=== PATIENT | female | born 1940 | race Caucasian/White ===

== ENCOUNTER → 2017-05-15 | Outpatient (CLI) | payer MEDICARE, OTHER ==
[~2017-05-15] MED LIST: ALLERGY RELIEF PO; ASPI-621 PO; CALCIUM PO; CHOL200024 PO; FLUT16SP NAS; LEVO125T5 PO; LOSA1TAB16 PO; LOVA20TA2 PO; MELO15TA24 PO; MULT-516 PO; ROPI1TAB2 PO; [UNRECOGNIZED DRUG - OTHER] PO
[2017-05-15 10:06] LABS: ASPARTATE AMINO TRANSFERASE 19 U/L (15-37); BLOOD UREA NITROGEN 13 mg/dL (7-18)
== END | disposition home or self-care (01) ==
LOC: STAR 09:02
PROVIDERS: ATTEND Urology
DX: Z01.818 Encounter for other preprocedural examination (principal); N39.46 Mixed incontinence
CPT/HCPCS: 36415; 80053; 81003; 87086; 93005

== ENCOUNTER 2017-05-22 12:24 | Day surgery (SDC) | payer MEDICARE, OTHER ==
[2017-05-15 09:26] VITALS: BP 166/94
[~2017-05-22] VITALS: Ht 175.3 cm; Wt 107.0 kg
[2017-05-22] MEDS ORDERED: LACTATED RINGERS 1,000 ML IV SCH (12:56)
[2017-05-22] MEDS ORDERED: BUPIVACAINE/PF 0.25% ONE (16:08)
[2017-05-22] MEDS ORDERED: EPINEPHRINE 1 MG/ML, 1ML ONE (16:08)
[2017-05-22] MEDS ORDERED: FENTANYL PF 100 MCG/2ML ONE (16:14)
[2017-05-22] MEDS ORDERED: NEOMY/POLYMYXIN B GU IRR. 1 ML IRRIG ONE (16:18)
[2017-05-22] MEDS ORDERED: LIDOCAINE-MPF 2% ,5ML ONE (16:25)
[2017-05-22] MEDS ORDERED: ONDANSETRON 2MG/ML, 2ML ONE (16:25)
[2017-05-22] MEDS ORDERED: DEXAMETHASONE 4 MG/ML, 1ML ONE (16:25)
[2017-05-22] MEDS ORDERED: CIPROFLOXACIN 400MG/200ML PMX ONE (16:25)
[2017-05-22] MEDS ORDERED: PROPOFOL 10 MG/ML, 20ML ONE (16:25)
[2017-05-22] MEDS ORDERED: PROMETHAZINE 25 MG/ML, 1ML IV PRN (17:00)
[2017-05-22] MEDS ORDERED: FENTANYL PF 100 MCG/2ML IV PRN (17:00)
[2017-05-22] MEDS ORDERED: OXYcodone 5 MG/5 ML ORAL.SOL UDC PO PRN (17:00)
[2017-05-22] MEDS ORDERED: hydrALAzine 20 MG/ML, 1ML IV PRN (17:00)
[2017-05-22] MEDS ORDERED: LABETALOL 5MG/ML, 20ML IV PRN (17:00)
[2017-05-22] MEDS ORDERED: MIDAZOLAM 1 MG/ML, 2ML IV PRN (17:00)
[2017-05-22] MEDS ORDERED: HYDROmorphone 1 MG/ML, 1ML IV PRN (17:00)
[2017-05-22] MEDS ORDERED: ONDANSETRON 2MG/ML, 2ML IVPush PRN (17:00)
[2017-05-22] MEDS ORDERED: THROMBIN 5,000 UNIT VIAL TP ONE (17:12)
[2017-05-22] MEDS ORDERED: OXYcodone/APAP 5/325MG TABLET PO PRN (18:00)
[2017-05-22] MEDS ORDERED: OXYC-306 PO (20:25)
[2017-05-22] MEDS ORDERED: CIPR-184 PO (20:27)
== END 2017-05-22 22:30 | disposition home or self-care (01) ==
LOC: OUT 12:24 → 4NOR 19:08 → OUT 22:30
PROVIDERS: ATTEND Urology
DX: N39.3 Stress incontinence (female) (male) (principal); I10 Essential (primary) hypertension; E78.2 Mixed hyperlipidemia; Z87.39 Personal history of other diseases of the musculoskeletal system and connective tissue; Z96.653 Presence of artificial knee joint, bilateral; Z98.890 Other specified postprocedural states
CPT/HCPCS: 57288; C1771; J0171; J0744; J1100; J2405; J2704; J3010; J3490; J7120

== ENCOUNTER 2018-10-09 07:20 | Day surgery (SDC) | payer MEDICARE ==
[~2018-10-09] VITALS: Ht 172.7 cm; Wt 107.8 kg
[~2018-10-09 07:20] MED LIST changes: -ASPI-621 PO; +ASPI81TA45 PO; +CIPR-184 PO; -LOSA1TAB16 PO; +LOSA1TAB19 PO; +OXYC-306 PO
[2018-10-09] MEDS ORDERED: SODIUM CHLORIDE 0.9% 1,000 ML IV SCH (08:14)
[2018-10-09 08:15] VITALS: BP 131/81
[2018-10-09] MEDS ORDERED: LIDOCAINE-MPF 1%, 5ML ONE (09:20)
[2018-10-09] MEDS ORDERED: FENTANYL PF 100 MCG/2ML ONE (09:29)
[2018-10-09] MEDS ORDERED: MIDAZOLAM 1 MG/ML, 5ML ONE (09:29)
[2018-10-09] MEDS ORDERED: FLUMAZENIL 0.1 MG/1 ML, 5ML ONE (09:29)
[2018-10-09] MEDS ORDERED: NALOXONE 1 MG/ML, 2ML ONE (09:29)
== END 2018-10-09 11:20 | disposition home or self-care (01) ==
LOC: OUT 07:20 → EDSTATUS 09:30 → OUT 11:20
PROVIDERS: ATTEND Family Medicine
DX: R59.1 Generalized enlarged lymph nodes (principal); I10 Essential (primary) hypertension
CPT/HCPCS: 49180; 77012; 88305; 99156; J2250; J3010; 88341; 88342; 99157; J2310

== ENCOUNTER → 2018-11-08 | Outpatient (CLI) | payer MEDICARE | END | disposition home or self-care (01) | LOC: PETCFH 07:11 | PROVIDERS: ATTEND Specialist | DX: C82.03 Follicular lymphoma grade I, intra-abdominal lymph nodes (principal); Z96.611 Presence of right artificial shoulder joint | CPT/HCPCS: 78815; A9552 ==